=== PATIENT | male | born 1990 | race Asian ===

== ENCOUNTER 2018-05-11 16:17 | Emergency (ER) | payer SELFPAY ==
[~2018-05-11] VITALS: Ht 175.3 cm; Wt 75.0 kg
[2018-05-11] MEDS ORDERED: BACITRACIN 0.9 GM PACKET OINTMENT TP ONE (16:45)
[2018-05-11] MEDS ORDERED: PERTUSS(ACELL),DIPH,TET VAC/PF 0.5 ML VIAL IM ONE (16:45)
[2018-05-11] MEDS ORDERED: ACETAMINOPHEN 325 MG TABLET PO ONE (16:45)
[2018-05-11] MEDS ORDERED: LIDOCAINE 1% 10 ML VIAL INJ ONE (16:45)
[2018-05-11] MEDS ORDERED: POVIDONE-IODINE 10% 15 ML SOLUTION UD TP ONE (16:45)
[2018-05-11 17:54] VITALS: BP 137/74
== END 2018-05-11 18:24 | disposition home or self-care (01) ==
LOC: EMS 16:19
DX: S91.311A Laceration without foreign body, right foot, initial encounter (principal); W31.89XA Contact with other specified machinery, initial encounter; Y93.89 Activity, other specified; Y92.89 Other specified places as the place of occurrence of the external cause; Y99.8 Other external cause status
CPT/HCPCS: 12002; 90471; 90715; 99283; J3490